=== PATIENT | female | born 1960 | race Caucasian/White ===

== ENCOUNTER 2021-03-22 07:31 | Emergency (ER) | payer SELFPAY ==
[~2021-03-22] VITALS: Ht 157.5 cm; Wt 57.2 kg
--- NOTE | 2021-03-22 07:44 | PHYS DOC ---
General Adult EDM: Chief Complaint: URINARY FREQUENCY HPI: HPI: 60 yo F past medical history of tobacco use, presents the ED with complaints of shortness of breath, body aches, back spasms, cough, fever and muscle spasms for the past 2 days stating she vomiting a few times yesterday. Patient is convinced she has a urinary tract infection because she has had similar symptoms in the past and was treated for UTI. Reports poor water intake-has drank a lot of Dr. Pepper in the past week due to occupation. Recently started a job at [employer] and moved here from [place] 2 months ago. Has no routine primary care physician. Has not been vaccinated for Covid and was pending vaccination next week-has avoided due to symptoms. Is not vaccinated for influenza. Takes no routine prescribed medications. Pt states "this isn't covid cause I would be too sick to come to the hospital." Is in denial of any sick contacts-states no covid outbreaks at work. Review of Systems: Review of Systems: Constitutional: Denies confusion or lethargy Eyes: Denies change in visual acuity. [] HENT: Denies nasal congestion or sore throat. [] Respiratory: Denies hemoptysis or shortness of breath. [] Cardiovascular: Denies chest pain or edema. [] GI: Denies abdominal pain, bloody stools or diarrhea. [] : Denies dysuria, hematuria or vaginal bleeding Musculoskeletal: Denies midline back pain or joint deformity] Integument: Denies rash or diaphoresis Neurologic: Denies headache, focal weakness or sensory changes. [] Endocrine: Denies polyuria or polydipsia. [] Lymphatic: Denies swollen glands. [] Psychiatric: Denies depression or anxiety. [] Heart Score: C/O Chest Pain: No Risk Factors: Risk Factors: DM, Current or recent (<one month) smoker, HTN, HLP, family history of CAD, obesity. Risk Scores: Score 0 - 3: 2.5% MACE over next 6 weeks - Discharge Home Score 4 - 6: 20.3% MACE over next 6 weeks - Admit for Clinical Observation Score 7 - 10: 72.7% MACE over next 6 weeks - Early Invasive Strategies Physical Exam: PE: Constitutional: no acute distress, non-toxic/heavy smoker appearance. HENT: Normocephalic, atraumatic, very dry mucous membranes, mild pharyngeal er ythema with no exudates Eyes: EOMI, conjunctiva normal, no discharge. Neck: Normal range of motion, supple, Cardiovascular: S1/2 present, regular rhythm Lungs & Thorax: Speaking in full sentences, bilateral equal chest rise, no tachypnea or increased work of breathing Abdomen: soft, no tenderness, Skin: Warm, dry, no erythema, no rash. [] Back: No midline tenderness, no CVA tenderness. [] Extremities: No tenderness, no cyanosis, no lower extremity edema Neurologic: Alert and oriented X 3, normal motor function, normal sensory function, no focal deficits noted. [] Psychologic: Affect normal, judgement normal, mood normal. [] EKG: EKG: [] Radiology/Procedures: Radiology/Procedures: [] Course & Med Decision Making: Course & Med Decision Making Pertinent Labs and Imaging studies reviewed. (See chart for details) COVID-19 CRITERIA: The patient was evaluated during the global COVID-19 pandemic, and that diagnosis was suspected/considered upon their initial presentation. Their evaluation, treatment and testing was consistent with current guidelines for patients who present with complaints or symptoms that may be related to COVID-19. Concern for upper respiratory infection, Covid rapid test positive. Urinalysis with no UTI. Patient protecting her airway with no hypoxia. Patient with asymptomatic bradycardia. Patient primarily concerned regarding pain management for body aches stating "tylenol and ibuprofen don't do shit." I recommended copious oral hydration and educated that narcotic pain medications are not indicated for COVID-19 infection. I also encouraged isolation/self quarantine for the next 12 days/14 days after symptom onset. Will discharge home with strict ED return precautions were given for increased work of breathing, worsening shortness of breath, chest pain, syncope or neurologic deficits. Encouraged urgent outpatient follow-up with PMD for reevaluation and routine c are. Life-threatening processes were considered but are low suspicion at this time, given history, physical exam and ED workup. Pt was educated on all prescription medications and adverse effects. All patient's questions were answered and pt was stable at time of discharge. Life/limb-threatening differential includes but is not limited to, airway emergency or respiratory distress/ARDS or fatigue or head or neck swelling, toxidrome, sepsis/shock, angioedema, anaphylaxis, congestive heart failure, myocarditis, acute myocardial infarction, dysrhythmias, cardiomyopathy, venous thromboembolism, pulmonary emboli, acute necrotizing hemorrhagic encephalopathy ,cerebral venous thrombosis, meningitis, encephalitis or CVA. I have spoken with the patient and/or caregivers. I explained the patient's condition, diagnoses and treatment plan based on the information available to me at this time. I have answered the patient and/or caregiver's questions and addressed any concerns. The patient and/or caregivers have a good understanding of patient's diagnosis, condition and treatment plan as can be expected at this point. Vital signs have been stable. Patient's condition is stable and appropriate for discharge from the emergency department. Patient will pursue further outpatient evaluation with primary care physician or other designated or consulting physician as outlined in the discharge inst ructions. The patient and/or caregivers are agreeable to this plan of care and follow-up instructions have been explained in detail. The patient and/or caregivers have received these instructions in written form and have expressed an understanding of the discharge instructions. The patient and/or caregivers are aware that any significant change of condition or worsening of symptoms should prompt immediate return to this or the closest emergency department or call to 1. Crow Disclaimer: Crow Disclaimer: This electronic medical record was generated, in whole or in part, using a voice recognition dictation system. Departure Departure Impression: Primary Impression: COVID-19 Additional Impression: Vomiting Disposition: 01 HOME / SELF CARE / HOMELESS Condition: STABLE Referrals: VALENTIN LAWRENCE III DO Follow-up with your primary care physician in 24 to 48 hours OR FOLLOW UP WITH FAMILY MEDICINE: [address] [facility] [place] [address] Patient Instructions: Upper Respiratory Infection, Adult Additional Instructions: Return to ED immediately if your oxygen level drops below 90% (purchase a pulse oximetry at a medical supply store), difficulties breathing including rapid breathing or increased work of breathing (skin sucking under ribs), chest pain or stroke-like symptoms (facial droop, speech changes, arm/leg weakness). You have been tested for or diagnosed with COVID-19. It is an infection caused by a new type of coronavirus. COVID-19 will cause cold-like or mild flu symptoms in most. It can cause more severe symptoms like problems breathing in some. There is no treatment for COVID-19. The body will clear the infection over time. Self-care will help to ease discomfort. Steps to Take: Self-Care Rest as needed. Healthy habits may help you feel better. Steps include: Choose healthy foods including fruits and vegetables. Drink water throughout the day. Get plenty of sleep each night. If you smoke, try to quit. It may ease breathing. Avoid alcohol. Keep Others Healthy The virus can spread to others. Droplets are released every time you sneeze or cough. The droplets can get into the mouth, nose, or eyes of people near you and lead to infection. To lower the chances of spreading COVID-19 to others: Stay at home until your doctor has said it is safe to leave. If you tested positive this will mean staying isolated until both of the following are true: At least 7 days have passed since the start of illness. You are free of fever for at least 72 hours without the use of medicine. During this time: - Avoid public areas, events, or transportation. Do not return to work or school until your doctor has said it is safe to do so. - Call ahead if you need to go to a medical center. Let them know you may have COVID-19. It will help them guide you where to go. They may also ask you to wear a facemask when you come to the office. - If you call for emergency medical services, let them know you may have COVID- 19. While at home: - Try to avoid close contact with others. Stay about 6 feet away. - If possible, spend most of your time in a separate room from others. - Use a face mask if you will be in close contact with others such as sharing a room or vehicle. - Have someone wipe down common surfaces in the home. Use household manager employment every day on areas like doorknobs, counters, or sinks. - Cough or sneeze into a tissue. Throw the tissue away right after use. If a tissue is not available, cough or sneeze into your elbow. - Wash your hands often. Wash them after sneezing or coughing. Use soap and water and wash for at least 20 seconds. Alcohol based hand room cleaner can be used if soap and water is not available. - Do not prepare food for others. Avoid sharing personal items like forks, spoons, or toothbrushes. - Avoid close contact with pets while you are sick. There is no evidence of the virus passing to pets. This is a safety step until more is known about this virus. Isolation can be frustrating. Social interaction can help. Keep in touch with friends and family through phone and tech options. You can still interact with others in your home, just keep a safe distance of about 6 feet. Follow-up: Your doctors office will check in with you to see if there are any changes in your health. You may be asked to keep track of symptoms to share with them. They will also let you know when you are clear to be in public again. Problems to Look Out For: Contact your doctor if your recovery is not going as you expect. Get emergency care if you have problems such as: - Trouble breathing - Nonstop chest pain or pressure - Changes in awareness, confusion, or problems waking - Lips or face have bluish color - Worsening of symptoms If you think you have an emergency, call for emergency medical services right away. As taken from [facility] Ondansetron (ONDANSETRON ODT) 4 Mg Tab.rapdis 1 TAB PO PRN Q6-8HRS PRN for VOMITING, #20 TAB Prov: YAHIR GARCIA DO 03/22/21 YAHIR GARCIA DO Mar 22, 2021 07:44
[2021-03-22 08:05] LABS: BILIRUBIN,URINE NEGATIVE (NEG); COLOR,URINE YELLOW; NITRITE,URINE NEGATIVE (NEG); PROTEIN,URINE NEGATIVE (NEG-TRACE)
[2021-03-22 08:13] LABS: CLARITY,URINE CLEAR
[2021-03-22 08:15] LABS: BACTERIA,URINE FEW /HPF (0-FEW)
[2021-03-22 08:33] LABS: INFLUENZA A PATIENT NEGATIVE (NEGATIVE); INFLUENZA B PATIENT NEGATIVE (NEGATIVE)
[2021-03-22] MEDS ORDERED: ONDA4TAB12 PO (08:53)
[2021-03-22 09:09] VITALS: BP 140/85
== END 2021-03-22 09:09 | disposition home or self-care (01) ==
LOC: ER 07:31
DX: U07.1 COVID-19 (principal); R11.10 Vomiting, unspecified; Z87.891 Personal history of nicotine dependence
CPT/HCPCS: 81001; 87426; 87804; 99283